=== PATIENT | male | born 1980 | race Two or more races ===

== ENCOUNTER 2021-12-06 13:06 | Emergency (ER) | payer MEDICAID, OTHER ==
[~2021-12-06] VITALS: Ht 177.8 cm; Wt 68.0 kg
[2021-12-06 13:30] VITALS: BP 120/78
[2021-12-06] MEDS ORDERED: IOHEXOL 300 MG/ML 100ML BOTTLE IJ ONE (13:51)
== END 2021-12-06 18:15 | disposition left against medical advice (07) ==
LOC: ER 13:06 → EDBD 13:06 → ER 18:15
DX: F17.210 Nicotine dependence, cigarettes, uncomplicated (principal); F12.10 Cannabis abuse, uncomplicated; Z88.6 Allergy status to analgesic agent
CPT/HCPCS: 99283; Q9967